=== PATIENT | male | born 1995 | race Caucasian/White ===

== ENCOUNTER 2016-05-07 01:29 | Emergency (ER) | payer OTHER ==
[~2016-05-07] VITALS: Ht 182.9 cm; Wt 78.0 kg
[2016-05-07 01:30] VITALS: TEMP 36.7; Ht 182.9 cm; Wt 78.0 kg
[2016-05-07] MEDS ORDERED: LIDOCAINE/EPINEPH/TETRACAINE 1 EA SYR EXT STA (02:02)
[2016-05-07 02:34] LABS: BUN/CREATININE RATIO 15.7 (10-20); CALCIUM 8.5 mg/dl (8.5-10.1); CREATININE 0.93 mg/dl (0.60-1.40); POTASSIUM 3.8 mmol/L (3.5-5.1)
--- NOTE | 2016-05-07 06:37 | EMERGENCY ROOM VISIT NOTE ---
History First contact with patient: 01:40 Chief Complaint: FALL Stated Complaint: FALL/HEAD LAC History of Present Illness The patient is a 20 year old male who presents to the Emergency Room with complaints of alcohol intoxication who tripped and fell down a few steps striking his head. Patient states he's had some alcohol tonight. Patient with a forehead laceration and forehead contusion. Patient denies chest pain, dyspnea, abdominal pain, neck pain, dental pain, eye pain, fever, chills, lightheadedness, dizziness, numbness, tingling. Tetanus is up-to-date. Review of Systems See HPI for pertinent positives & negatives. A total of 10 systems reviewed and were otherwise negative. Past Medical/Surgical History None Social History Smoking Status: Never Smoker Smokeless Tobacco Use: No Alcohol Use: occasionally Drug Use: none Marital Status: in relationship Occupation Status: [employer] Current/Historical Medications No Active Prescriptions or Reported Meds Allergies Coded Allergies: Shellfish (Unverified Allergy, Unknown, hives, 05/07/16) Physical Exam Vital Signs Date Time Temp Pulse Resp B/P Pulse Ox O2 Delivery O2 Flow Rate FiO2 05/07/16 05:27 69 05/07/16 05:07 65 16 119/76 94 Room Air 05/07/16 03:12 65 18 127/50 100 Room Air 05/07/16 01:44 Room Air 05/07/16 01:43 78 05/07/16 01:30 36.7 84 18 135/75 95 Room Air Physical Exam PHYSICAL EXAM: VITALS: Vitals are noted on the nurse's note and reviewed by myself. Vital signs stable. GENERAL: White male with EtOH odor, in no acute distress, nondiaphoretic, well- developed well-nourished. SKIN: 4 cm forehead laceration is gaping and appears clean with superficial abrasion and abrasion to the left zygomatic region The rest of the skin was without obvious lacerations or abrasions. Capillary reflex less than 2 seconds. HEAD: Normocephalic atraumatic. Dental exam: No loose or chipped teeth EARS: External auditory canals clear, tympanic membranes pearly amaro without erythema or effusion bilaterally. No hemotympanums. No roque sign. No mastoid tenderness. EYES: Pupils equal round and reactive to light and accommodation. Conjunctivae with injection, sclerae without icterus. Extraocular movements intact. NOSE: Patent, turbinates without inflammation or discharge. No sinus tenderness. No septal hematoma or bleeding. FACE: Forehead facial bone tenderness. Full range of motion of the jaw without tenderness. MOUTH: Mucous membranes moist. Pharynx without erythema or exudate. Uvula midline. Airway patent. Tongue does not deviate. NECK: Supple without nuchal rigidity. Cervical spine is nontender. Full range of motion of the neck without tenderness. No JVD. HEART: Regular rate and rhythm without murmurs gallops or rubs. LUNGS: Clear to auscultation bilaterally without wheezes, rales or rhonchi. No dullness to percussion. No retractions or accessory muscle use. No chest wall tenderness. ABDOMEN: Positive bowel sounds x 4. Normal tympanic percussion. Soft, nontender, without masses or organomegaly. No guarding or rebound tenderness. MUSCULOSKELETAL: No tenderness of the thoracic or lumbar spine. No tenderness with pelvic rocking. Full range of motion without tenderness to palpation in all extremities. Normal gait. Strength 5/5 throughout. Peripheral pulses 2+. NEURO: Patient was alert and oriented to person place and time. Normal sensation to light and sharp touch. Negative Romberg and pronator drift. Cerebellar function intact. No focal neurological deficits. Medical Decision & Procedures Laboratory Results 05/07/16 02:00 Test 05/07/16 02:00 Anion Gap 11.0 mmol/L (3-11) Est Creatinine Clear Calc Drug Dose 140.3 ml/min Estimated GFR () 137.4 Estimated GFR (Non- 118.6 BUN/Creatinine Ratio 15.7 (10-20) Calcium Level 8.5 mg/dl (8.5-10.1) Ethyl Alcohol mg/dL 201.0 mg/dl (0-3) Medications Administered Medications (Trade) Dose Ordered Sig/Lorraine Route Start Time Stop Time Status Last Admin Dose Admin Tetracaine/ Epinephrine/ Lidocaine (L.e.t. Gel 4%/ 1:100/0.5%) 1 ea NOW STAT EXT 05/07/16 02:02 05/07/16 02:04 DC 05/07/16 02:18 1 EA Procedure Location: Forehead Total length: 4 cm Complexity: simple Verbal consent was obtained after the risks and benefits were explained, including but not limited to bleeding, scarring, infection, pain, and bone/joint /nerve damage. At this time, the risks of the procedure are less than the risks of NOT performing the procedure. A time out was taken and the correct patient and site identified. The skin was prepped with betadine. The target area was anesthetized with LET. Copious irrigation was performed using NSS. The skin was re-prepped with betadine and a sterile field set. The wound was explored for foreign bodies and none found. Examination revealed no injury to deep structures such as tendons, bone, or significant blood vessels. Debridement was not performed. The wound edges were approximated using 8, 6-0 simple interrupted nylon sutures. Hemostasis and excellent approximation was achieved. Antibacterial ointment and a sterile dressing applied. Detailed wound care instructions and signs and symptoms of infection reviewed with the pt. No complications and the patient tolerated the procedure well. ED Course Prior records/ancillary studies reviewed. Triage Nursing notes reviewed. Additional history obtained from EMS The patient's history was concerning for traumatic injury Differential diagnosis: Etiologies such as fracture, dislocation, intra-abdominal, pneumothorax, intrathoracic , intracranial, neurologic, as well as other traumatic pathologies were entertained. Physical examination findings: As above. The patients vitals were stable ER treatment provided: Laceration repaired as above On reassessment the patient felt better. Vital signs were stable. Diagnostic interpretation by me: The labs revealed elevated alcohol. Imaging studies: Stat radiology read the head, face and cervical CT and negative for fracture or bleed CT HEAD: Left frontal scalp soft tissue swelling. No ICH, mass effect or edema. No skull fracture. CT FACIAL: Mild left facial soft tissue swelling. No fracture. Mild left sphenoid sinus mucosal thickening. Orbits intact. CT C SPINE: No evidence of fracture or malalignment. Radiologist: Juan Gates M.D. This appears to be consistent with headache injury, fall, laceration and alcohol intoxication. Laceration was repaired as above. Patient did not have acute abdomen on exam. No chest pain. No other injuries are noted. He was reassessed multiple times and was pain-free. Patient did not have acute abdomen on exam. He was counseled on head injury signs and symptoms and laceration care. He was advised follow-up health services in a few days or here in the ER sooner for severe pain, headache, confusion, worsening signs or symptoms or as needed. By the evaluation outlined above emergent etiologies such as fracture, dislocation, intra-abdominal, pneumothorax, pulmonary contusion, hemothorax, intracranial, neurologic,as well as others were deemed relatively unlikely. The pt informed about the findings as listed above. All questions were answered and pleased with the treatment. Return instructions were outlined and the patient was discharged in stable condition. Referral: The patient was referred to health services for follow-up in 2 to 3 days for a recheck of the current condition. Case reviewed with my attending Medical Decision As above Impression Primary Impression: Head injury Additional Impressions: Forehead laceration Forehead contusion Facial abrasion Fall Alcohol intoxication Departure Information Dispostion Home / Self-Care Condition GOOD Prescriptions No Active Prescriptions or Reported Meds Referrals No Doctor, Assigned (PCP) Patient Instructions [facility] Additional Instructions Keep wound clean and dry. Do not allow any crusting or dried blood to accumulate on sutures. If this occurs, use a 1:1 solution of hydrogen peroxide/ water on a Q-tip to clean the wound. Use an antibiotic ointment for 3-4 days, then let wound dry. Suture removal in 5-7 days. Return sooner for any signs of infection (increasing redness, swelling, drainage). Ice and elevate for swelling and pain. Ibuprofen 600 mg and Tylenol 1000 mg every 6 hrs for pain. Keep covered when in sun until sutures removed then SPF 50 or higher for one year. Vitamin E oil if desired two weeks after suture removal for reduction of scar Antibiotic ointment and bandage to the areas until healed. Follow up with family doctor or return for any signs of infection (increasing redness, swelling , drainage, or fever). Keep covered when in sun until fully healed then SPF 50 or higher until scar healed. Read head injury handout and return for any symptoms. Tylenol 1000 mg as needed for pain (Maximum 3000 mg Tylenol in 24 hr period). Avoid alcohol and contact sports/activities for one week and follow up with family doctor prior to returning to these activities if still symptomatic. Ice and elevate head. If your symptoms persist more than a week then follow up with the concussion clinic. Call [phone]. Return to ER sooner for headache, dental pain, chest pain, fevers, confusion, worsening signs or symptoms or as needed. Problem Qualifiers Primary Impression: Head injury Encounter type: initial encounter Qualified Codes: S09.90XA - Unspecified injury of head, initial encounter
--- NOTE | 2016-05-07 06:50 | DIAGNOSTIC IMAGING REPORT ---
MAXILLOFACIAL CT CT DOSE: 1054.23 mGy.cm HISTORY: Trauma fall, ETOH TECHNIQUE: Multiaxial CT images of the maxillofacial region were performed and reformatted in the coronal plane without the use of contrast. COMPARISON: None. FINDINGS: The visualized cervical spine, skull base, pterygoid plates, nasal bones, lamina papyracea, orbital floors, mandible, and zygomatic arches are intact. No fractures. The orbits are unremarkable. IMPRESSION: No fractures within the maxillofacial region. Electronically signed by: Brady Rosales M.D. 05/07/2016 6:49 AM Dictated Date/Time: 05/07/2016 6:48 AM
[2016-05-07 06:58] VITALS: BP 115/55; PULSE 61; O2SAT 95
--- NOTE | 2016-05-07 07:20 | DIAGNOSTIC IMAGING REPORT ---
HEAD CT NONCONTRAST CT DOSE: HISTORY: fall, ETOH TECHNIQUE: Multiaxial CT images of the head were performed without the use of intravenous contrast. Automated exposure control was utilized for this study. Comparison: None. Findings: The paranasal sinuses and mastoid air cells are clear. The calvarium and skull base are intact. The ventricles and sulci are within normal limits. There is no mass, hematoma, midline shift, or acute infarct. Left periorbital soft tissue swelling and frontal scalp swelling with a small laceration. Impression: No acute intracranial abnormality. Frontal scalp swelling with a small laceration. Electronically signed by: Ender Cash M.D. 05/07/2016 7:19 AM Dictated Date/Time: 05/07/2016 7:16 AM
--- NOTE | 2016-05-07 07:23 | DIAGNOSTIC IMAGING REPORT ---
CERVICAL SPINE CT CT DOSE: HISTORY: fall, ETOH TECHNIQUE: Multiaxial CT images of the cervical spine were performed and reformatted in the sagittal and coronal plane without the use of contrast. COMPARISON: None. FINDINGS: No fractures. No subluxation. Prevertebral soft tissues and the C1-C2 interval are intact. No pneumothorax. IMPRESSION: No fractures within the cervical spine. Electronically signed by: Ender Cash M.D. 05/07/2016 7:21 AM Dictated Date/Time: 05/07/2016 7:19 AM
== END 2016-05-07 07:02 | disposition home or self-care (01) ==
LOC: EDBD 01:29 → C.EDA 01:30
DX: S09.90XA Unspecified injury of head, initial encounter (principal); S01.81XA Laceration without foreign body of other part of head, initial encounter; F10.129 Alcohol abuse with intoxication, unspecified; W10.9XXA Fall (on) (from) unspecified stairs and steps, initial encounter